=== PATIENT | female | born 1950 | race Caucasian/White ===

== ENCOUNTER 2023-10-30 08:33 | Outpatient (CLI) | payer MEDICARE, OTHER | END 2023-10-30 08:34 | disposition home or self-care (01) | LOC: SCSMRI 08:33 | PROVIDERS: ATTEND Family Medicine | DX: M51.17 Intervertebral disc disorders with radiculopathy, lumbosacral region (principal); M16.12 Unilateral primary osteoarthritis, left hip; M76.892 Other specified enthesopathies of left lower limb, excluding foot; M47.816 Spondylosis without myelopathy or radiculopathy, lumbar region; M48.061 Spinal stenosis, lumbar region without neurogenic claudication; M51.36 Other intervertebral disc degeneration, lumbar region; M89.38 Hypertrophy of bone, other site | CPT/HCPCS: 72148 ==